=== PATIENT | male | born 1995 | race Caucasian/White ===

== ENCOUNTER 2016-10-05 19:13 | Emergency (ER) | payer SELFPAY ==
[~2016-10-05] VITALS: Ht 175.3 cm; Wt 61.0 kg
[~2016-10-05 19:13] MED LIST: Z.0.NO CURRENT MEDS
[2016-10-05 19:16] VITALS: BP 128/76; PULSE 84; RESP 18; TEMP 98.5; O2SAT 97
[2016-10-05] MEDS ORDERED: TETANUS/DIPHTHERIA TOXOID ADULT 0.5 ML VIAL IM ONE (19:45)
[2016-10-05] MEDS ORDERED: CEPH-460 PO (20:10)
[2016-10-05] MEDS ORDERED: CIPR-9 PO (20:10)
--- NOTE | 2016-10-05 20:10 | PD ---
HPI Chief Complaint: Injury Time Seen by Provider: 19:50 Travel History International Travel<30 days: No Contact w/Intl Traveler<30days: No Traveled to known affect area: No History of Present Illness HPI 20-year-old male presents to the emergency room for evaluation after stepping on a prince nail. Patient was wearing flip-flops. States he believes the nail went into his foot approximately 1 cm. Reports pain at the time of injury but denies significant pain at this time. Patient came straight to the emergency room and has not cleaned his wound. Last tetanus was greater than 5 years ago. No chronic medical conditions or daily medications. [facility] Past Medical History Medical History: Denies Significant Hx Diminished Hearing: No Immunizations Current: No Influenza Vaccination: Yes ?: Not Past Surgical History Surgical History: No Previous Surgery Social History Alcohol Use: No Tobacco Use: No Substance Use: No Allergies-Medications (Allergen,Severity, Reaction): Coded Allergies: No Known Allergies (Verified , 10/05/16) Reported Meds & Prescriptions Reported Meds & Active Scripts Active Review of Systems Except as stated in HPI: all other systems reviewed are Neg Physical Exam Narrative GENERAL: Well-nourished, well-developed male in no acute distress. Afebrile. Ambulatory. SKIN: Focused skin assessment warm/dry. There is a 1 mm puncture wound to the middle plantar foot of the right foot. No drainage. No foreign bodies. No surrounding erythema. No significant tenderness to palpation. HEAD: Normocephalic. EYES: No scleral icterus. No injection or drainage. NECK: Supple, trachea midline. No JVD or lymphadenopathy. CARDIOVASCULAR: Regular rate and rhythm without murmurs, gallops, or rubs. RESPIRATORY: Breath sounds equal bilaterally. No accessory muscle use. MUSCULOSKELETAL: No cyanosis, or edema. Data Data Last Documented VS Vital Signs Date Time Temp Pulse Resp B/P Pulse Ox O2 Delivery O2 Flow Rate FiO2 10/05/16 19:16 98.5 84 18 128/76 97 Orders Tetanus/Diphtheria Tox Adult (Tetanus/Di (10/05/16 19:45) MDM Medical Decision Making Medical Screen Exam Complete: Yes Emergency Medical Condition: Yes Medical Record Reviewed: Yes Differential Diagnosis Puncture wound, tetanus prophylaxis, wound care Narrative Course 20-year-old male presents to the emergency room for evaluation after stepping on a prince nail just prior to arrival. Nail punctured through patient's shoe. Reports minimal pain. No drainage or foreign body. Physical exam reveals a 1 mm puncture wound to the right plantar, midfoot. Follow-up was thoroughly cleansed and patient's foot was soaked in Betadine solution. Tetanus was updated. Patient will be discharged with prescriptions for Cipro and Keflex. Told to monitor for signs of infection and start antibiotics immediately if he has redness, swelling, drainage, or increasing pain. Told to return for worsening symptoms. He understands and agrees to plan. Diagnosis Primary Impression: Puncture wound of skin from metal nail Referrals: Primary Care Physician Patient Instructions: General Instructions, Puncture Wound (ED) Additional Instructions: Rest and drink plenty of fluids. Keep wound clean and dry. Apply triple antibiotic ointment daily. If you develop redness around the area, increasing pain, swelling, or drainage, start Keflex and Cipro and take as directed, until gone. Follow-up with a primary care physician. Return to the emergency room for worsening symptoms. Med/Other Pt SpecificInfo: Prescription(s) given Disposition: 01 DISCHARGE HOME Condition: Stable Krista Marcial Oct 05, 2016 20:10
== END 2016-10-05 20:33 | disposition home or self-care (01) ==
LOC: PHEFT 19:13
DX: S91.331A Puncture wound without foreign body, right foot, initial encounter (principal); Z23 Encounter for immunization; W45.0XXA Nail entering through skin, initial encounter
CPT/HCPCS: 90471; 90714

== ENCOUNTER 2017-01-15 03:18 | Emergency (ER) | payer BC ==
[~2017-01-15] VITALS: Ht 175.3 cm; Wt 61.7 kg
[~2017-01-15 03:18] MED LIST changes: +CEPH-460 PO; +CIPR-9 PO; -Z.0.NO CURRENT MEDS
[2017-01-15 03:25] VITALS: BP 123/79; PULSE 81; RESP 16; TEMP 97.5; O2SAT 96
[2017-01-15 03:42] VITALS: BP 123/79; PULSE 81; RESP 16; TEMP 97.5; O2SAT 96
[2017-01-15] MEDS ORDERED: AMOX875T PO (03:50)
--- NOTE | 2017-01-15 03:50 | PD ---
HPI Chief Complaint: ENT Complaint Time Seen by Provider: 03:43 Travel History International Travel<30 days: No Contact w/Intl Traveler<30days: No Traveled to known affect area: No History of Present Illness HPI The patient is a 21-year-old male that complains of left ear pain since noon yesterday. He denies any TMJ pain and denies any dental problems. He states the last time he got an ear infection was when he was a child. PFSH Past Medical History Diminished Hearing: No Immunizations Current: No Social History Alcohol Use: No Tobacco Use: No Substance Use: No Allergies-Medications (Allergen,Severity, Reaction): Coded Allergies: No Known Allergies (Verified Adverse Reaction, Unknown, 01/15/17) Reported Meds & Prescriptions Reported Meds & Active Scripts Active Review of Systems Except as stated in HPI: all other systems reviewed are Neg Physical Exam Narrative GENERAL: Well-nourished, well-developed patient in slight apparent distress with his left ear discomfort. His vital signs are normal. SKIN: Focused skin assessment warm/dry. HEAD: Normocephalic. EYES: No scleral icterus. No injection or drainage. NECK: Supple, trachea midline. No JVD or lymphadenopathy. CARDIOVASCULAR: Regular rate and rhythm without murmurs, gallops, or rubs. RESPIRATORY: Breath sounds equal bilaterally. No accessory muscle use. GASTROINTESTINAL: Abdomen soft, non-tender, nondistended. MUSCULOSKELETAL: No cyanosis, or edema. BACK: Nontender without obvious deformity. No CVA tenderness. ENT: The right tympanic membrane and canal are normal. The left canal is normal but the left tympanic membrane is distorted and red. The throat is clear without erythema, exudate or abscess. The TMJ areas are nontender. DENTAL: No loose or chipped teeth. No malocclusion. There is no evidence of dental infection. Data Data Last Documented VS Vital Signs Date Time Temp Pulse Resp B/P (MAP) Pulse Ox O2 Delivery O2 Flow Rate FiO2 01/15/17 03:25 97.5 81 16 123/79 (94) 96 MDM Medical Decision Making Medical Screen Exam Complete: Yes Emergency Medical Condition: Yes Medical Record Reviewed: Yes Differential Diagnosis Acute left otitis media, acute left otitis externa, TMJ pain, dental infection Narrative Course The patient has left otitis media. There is no clinical evidence for any the other possibilities as listed above. Plan: He will be given amoxicillin 875 mg twice daily for 10 days. Diagnosis Primary Impression: Acute otitis media, left Additional Instructions: The patient has an acute left otitis media. He will be given amoxicillin 875 twice daily for 10 days. He is to follow-up with a primary care physician next week. Med/Other Pt SpecificInfo: Prescription(s) given Scripts Amoxicillin (Amoxicillin) 875 Mg Tab 875 MG PO BID for Infection, #20 TAB 0 Refills Prov: Bernardo Caceres MD 01/15/17 Disposition: 01 DISCHARGE HOME Condition: Stable Bernardo Caceres MD Jan 15, 2017 03:50
[2017-01-15] MEDS ORDERED: AMOXICILLIN 875 MG TAB PO ONE (04:00)
== END 2017-01-15 04:10 | disposition home or self-care (01) ==
LOC: PHED 03:18
DX: H66.92 Otitis media, unspecified, left ear (principal)
CPT/HCPCS: 99283